=== PATIENT | male | born 1960 | race Hispanic/Latino ===

== ENCOUNTER → 2023-06-03 | Outpatient (CLI) | payer OTHER ==
[~2023-06-03] MED LIST: ASCO500T20 PO; CYAN250014 PO; FERR-63 PO; FOLI0.8T3 PO; HYDR-3421 PO; IOHEXOL 350 MG/ML 100ML INFUS..BTL IV ONE; LOSA100T59 PO; OMEGA 3 PO; PANT40TA54 PO; ROSU10TA72 PO; TRAZODONE PO; VITA-328 PO; VITA-382 PO
== END | disposition home or self-care (01) ==
LOC: RAH 09:26
PROVIDERS: ATTEND Student in an Organized Health Care Education/Training Program
DX: R07.9 Chest pain, unspecified (principal); M47.815 Spondylosis without myelopathy or radiculopathy, thoracolumbar region; Z82.49 Family history of ischemic heart disease and other diseases of the circulatory system
CPT/HCPCS: 75574; Q9967

== ENCOUNTER 2023-06-12 06:01 | Day surgery (SDC) | payer OTHER ==
[~2023-06-12] VITALS: Ht 172.7 cm; Wt 104.3 kg
[2023-06-12] VITALS (11 sets, daily range): BP systolic 105–123; BP diastolic 59–70; PULSE 48–58; RESP 15–22
[2023-06-12] MEDS ORDERED: LOSA100T59 PO (07:06)
[2023-06-12] MEDS ORDERED: FERR-63 PO (07:06)
[2023-06-12] MEDS ORDERED: HYDR-3421 PO (07:06)
[2023-06-12] MEDS ORDERED: PANT40TA54 PO (07:06)
[2023-06-12] MEDS ORDERED: OMEGA 3 PO (07:06)
[2023-06-12] MEDS ORDERED: ASCO500T20 PO (07:06)
[2023-06-12] MEDS ORDERED: ROSU10TA28 PO (07:06)
[2023-06-12] MEDS ORDERED: CYAN250014 PO (07:06)
[2023-06-12] MEDS ORDERED: VITA-382 PO (07:06)
[2023-06-12] MEDS ORDERED: FOLI0.8T3 PO (07:06)
[2023-06-12] MEDS ORDERED: VITA-328 PO (07:06)
[2023-06-12] MEDS ORDERED: TRAZODONE PO (07:09)
[2023-06-12] MEDS: 0.9%NACL 1000ML 1,000 ML IV ONE (07:09)
[2023-06-12] MEDS ORDERED: PROPOFOL 10 MG/ML 20ML VIAL IV ONE ×2 (07:53)
== END 2023-06-12 11:00 ==
LOC: DAH 06:01 → ENDO 06:01
PROVIDERS: ATTEND Internal Medicine Gastroenterology
DX: Z12.11 Encounter for screening for malignant neoplasm of colon (principal); D12.2 Benign neoplasm of ascending colon; D12.4 Benign neoplasm of descending colon; D12.3 Benign neoplasm of transverse colon; D12.8 Benign neoplasm of rectum; K29.50 Unspecified chronic gastritis without bleeding; K31.89 Other diseases of stomach and duodenum; K21.00 Gastro-esophageal reflux disease with esophagitis, without bleeding; K44.9 Diaphragmatic hernia without obstruction or gangrene; K70.30 Alcoholic cirrhosis of liver without ascites; I85.10 Secondary esophageal varices without bleeding; I10 Essential (primary) hypertension; R60.0 Localized edema; R93.2 Abnormal findings on diagnostic imaging of liver and biliary tract; E66.01 Morbid (severe) obesity due to excess calories; Z68.41 Body mass index [BMI] 40.0-44.9, adult; Z98.84 Bariatric surgery status; Z79.899 Other long term (current) drug therapy
CPT/HCPCS: 43239; 45381; 45380; 45385; J7030 ×2; J2704 ×2; A4620; A4215 ×2; A4223; A7002; A4222; A4221; A4663; A4606; J3490